=== PATIENT | male | born 1945 | race Caucasian/White ===

== ENCOUNTER → 2024-01-11 07:47 | Outpatient (REF) | payer MEDICARE, OTHER, SELFPAY ==
[2024-01-11 09:06] LABS: Hematocrit 44.4 % (39.0-52.0); Hemoglobin 15.5 g/dL (13.0-18.0); Mean Corp Hgb Conc. 34.9 g/dL (33.0-37.0); Mean Corpuscular Hgb 31.7 pg (27.0-31.0); Mean Corpuscular Volume 90.8 fL (80.0-94.0); Mean Platelet Volume 11.9 fL (7.4-10.4); Platelet Count 191 10^3/uL (130-400); Red Blood Cell Count 4.89 10^6/uL (4.70-6.10); Red Cell Dist. Width 12.5 % (11.5-14.5); White Blood Cell Count 9.8 10^3/uL (4.8-10.8)
[2024-01-11 09:49] LABS: Blood Urea Nitrogen 28 mg/dl (9-20); Calcium 9.5 mg/dl (8.4-10.2); Carbon Dioxide 27 mmol/L (22-30); Chloride 106 mmol/L (98-107); Glucose 101 mg/dl (70-99); Potassium 4.2 mmol/L (3.5-5.1); Sodium 137 mmol/L (135-145); eGFR > 60.00
== END ==
LOC: SDSPAT 07:47
PROVIDERS: ATTENDING PHYSICIAN Surgery; FAMILY PHYSICIAN Family Medicine; OTHER PHYSICIAN Internal Medicine; OTHER PHYSICIAN Surgery
DX: Z01.818 Encounter for other preprocedural examination (principal)
CPT/HCPCS: 36415; 80048; 85027; 93005

== ENCOUNTER 2024-01-18 06:15 | Day surgery (SDC) | payer MEDICARE, OTHER, SELFPAY ==
[2024-01-11 08:09] VITALS: BMI 25.9
[2024-01-18] VITALS (8 sets, daily range): BP systolic 130–169; BP diastolic 62–81; BMI 25.9
[2024-01-18] MEDS: TYLENOL 1000 MG PO (09:38)
[2024-01-18] MEDS: NORMOSOL-R 1000 IV (09:42)
--- NOTE | 2024-01-18 10:05 | W.SUR.PREOP ---
Pre-Operative Surgical Note
-
I have examined this patient prior to the performance of the scheduled procedure.
The patient's condition is unchanged from the time of the current History and
Physical and the patient is able to undergo the scheduled procedure.
--- NOTE | 2024-01-18 11:59 | W.IMMPOSTOP ---
Surgical Immed Post Op Note
-
Primary Surgeon: Noah Palacios MD
Assisting Surgeon: Umang Keith PGY1
Pre-op Diagnosis: Left inguinal hernia
Post-op Diagnosis: Same
Procedure Performed:
Open left inguinal hernia repair with mesh
Left inguinal neurectomy x 2
Anesthesia Type: General
Specimen / Cultures: Left inguinal nerves
Estimated Blood Loss: 3 cc
Complications: None
Operative Findings: Fairly large blown out direct inguinal hernia. The transversalis fascia was opened and the femoral space was inspected and noted to be free of any defects. The superior edge of the conjoined tendon was then tacked down to the
shelving edge in Bassini type repair before reinforcing the floor with a 3 x 6 inch piece of Bard flat mesh was cut to size. There was a small indirect defect that was reduced as well, there was no cord lipoma.
--- NOTE | 2024-01-18 12:03 | OR.RPT ---
Addendum entered and electronically signed by Noah Palacios MD 01/19/24 14:43:
The assistance of PRATIBHA Mckeon was required due to the complexity of the procedure. Umang scrubbed in about detention through the case after dissection of the critical structures and isolation of the cord at which point he took over as first
assist. During the procedure they both assisted with retraction, resection, and closure of the wound.
Original Note:
Operative Report
Operative Report
Patient Name: Luis Daniel Woods
: 1945
Date of Operation: 01/18/2024
Preoperative Diagnosis: Reducible Inguinal hernia, left
Postoperative Diagnosis: Same
Procedure(s):
Open Inguinal Hernia Repair
Surgeon(s):
Dr. Palacios
Marriage Therapist(s):
Umang Keith MD PGY1
PRATIBHA Mckeon
Anesthesia: General
Estimated Blood Loss: 3 cc
Urine Output: None
Drains/Lines/Implants: 3 x 6 inch Bard Flat Mesh cut to size
Specimens: Left inguinal nerves x 2
Indication for surgery: The patient has a history of multiple abdominal surgeries as well as a small bowel obstruction. He was noted to have a fairly large left inguinal hernia containing small bowel which caused him some groin pain and so
following review of therapeutic options they elected to undergo an open repair
Operative Findings: Fairly large blown out direct inguinal hernia. The transversalis fascia was opened and the femoral space was inspected and noted to be free of any defects. The superior edge of the conjoined tendon was then tacked down to the
shelving edge in a Bassini type repair before reinforcing the floor with a 3 x 6 inch piece of Bard flat mesh was cut to size. There was a small indirect defect that was reduced as well, there was no cord lipoma.
Details of the operation:
After induction of general anesthesia/LMA, the patient was clipped, prepped and draped in the supine position. A team timeout was performed confirming administration of DVT prophylaxis, IV antibiotics and SCDs. The ASIS and pubic tubercle were
marked and an incision was chosen along the course of a skin line. The skin was anesthestized with Lidocaine. An incision was made through the skin line and dissection carried down through subcutaneous tissue and Jules's fascia. The superficial
epigastric vein was i not identified. A [place] wound retractor was used to provide exposure. The external oblique fibers were then divided in the direction of travel. The ilioinguinal nerve was identified and sacrificed. Dissection was carried
down to the floor, which revealed the following:
At the site of the indirect (internal) ring, there was a small protrusion of preperitoneal fat, the hernia sac was identified, dissected and reduced off the cord structures back into the abdomen. A cord lipoma was not identified.
The direct space, was fairly blown out. The transversalis fascia was incised and the preperitoneal fat was reduced revealing Rodolfo's ligament. The femoral space was palpated and no defect was noted there. The conjoined tendon was then sutured
down to the shelving edge using interrupted 0 PDS sutures in a Bassini hernia repair type fashion.
The floor of the canal was then reconstructed by placing a 6x3 in BARD flat polypropylene mesh trimmed to size and secured it in place with interrupted 0-PDS sutures medially at the pubic tubercle, inferiorly along the inguinal ligament,
laterally/superiorly in the conjoint tendon. A slit was made in the mesh just wide enough to accommodate the cord this was also reapproximated with the PDS suture. Care was taken not to injure or entrap any nerves. The external oblique fibers were
then closed using a running 2-0 Vicryl suture. Jules's fascia was then closed with interrupted 3-0 Vicryl suture. The skin was closed in layers with interrupted 3-0 vicryl deep dermals followed by a running subcuticular 4-0 Monocryl followed by
dermabond. The patient returned to the Recovery Room in stable condition. Sponge and instrument counts were correct x2.
I was the attending physician and performed the procedure with assistance from the resident and PA above. I was present for all portions of the case
Noah Palacios MD
== END 2024-01-18 13:20 | disposition home or self-care (01) ==
LOC: SDS 06:15
PROVIDERS: ATTENDING PHYSICIAN Surgery; FAMILY PHYSICIAN Family Medicine
PROC: 0YU60JZ Supplement Left Inguinal Region with Synthetic Substitute, Open Approach (ICD-10-PCS; 2024-01-18)
DX: K40.90 Unilateral inguinal hernia, without obstruction or gangrene, not specified as recurrent (principal); D36.16 Benign neoplasm of peripheral nerves and autonomic nervous system of pelvis; Z85.51 Personal history of malignant neoplasm of bladder
CPT/HCPCS: 49505; 88305; C1781

== ENCOUNTER → 2024-01-31 18:21 | Outpatient (REF) | payer MEDICARE, OTHER, SELFPAY | LOC: CLAB 18:21 | PROVIDERS: ATTENDING PHYSICIAN Specialist | DX: C67.9 Malignant neoplasm of bladder, unspecified (principal) | CPT/HCPCS: 88112 ==

== ENCOUNTER → 2024-08-30 09:01 | Outpatient (REF) | payer MEDICARE, OTHER, SELFPAY | LOC: CLAB 09:01 | PROVIDERS: ATTENDING PHYSICIAN Specialist | DX: C67.9 Malignant neoplasm of bladder, unspecified (principal) | CPT/HCPCS: 88112 ==

== ENCOUNTER → 2025-01-27 14:03 | Outpatient (REF) | payer MEDICARE, OTHER, SELFPAY ==
[2025-01-27 18:15] LABS: Urine Albumin 1+ (Neg - Trace); Urine Bilirubin Negative (Negative); Urine Character Clear (Clear); Urine Color Yellow; Urine Glucose Negative (Negative); Urine Ketone Negative (Negative); Urine Leukocyte 1+ (Negative); Urine Nitrite Negative (Negative); Urine Occult Blood 2+ (Negative); Urine Urobilinogen Negative (Neg - 1+)
[2025-01-27 18:52] LABS: Urine Bacteria Few (Negative); Urine White Cell 16-20 /HPF (0-5)
== END ==
LOC: CLAB 14:03
PROVIDERS: ATTENDING PHYSICIAN Specialist
DX: N39.0 Urinary tract infection, site not specified (principal)
CPT/HCPCS: 81003; 81015; 87086

== ENCOUNTER → 2025-01-28 09:50 | Outpatient (REF) | payer MEDICARE, OTHER, SELFPAY ==
[2025-01-28 11:51] LABS: ALT (SGPT) 21 U/L (0-50); AST (SGOT) 20 U/L (17-59); Albumin 4.4 g/dl (3.5-5.0); Alkaline Phosphatase 68 U/L (38-126); Blood Urea Nitrogen 28 mg/dl (9-20); Calcium 9.5 mg/dl (8.4-10.2); Carbon Dioxide 26 mmol/L (22-30); Chloride 106 mmol/L (98-107); Glucose 75 mg/dl (70-99); Potassium 4.2 mmol/L (3.5-5.1); Sodium 143 mmol/L (135-145); Total Bilirubin 0.5 mg/dl (0.2-1.3); Total Protein 6.9 g/dl (6.3-8.2); eGFR > 60.00
== END ==
LOC: REG 09:50
PROVIDERS: ATTENDING PHYSICIAN Specialist; FAMILY PHYSICIAN Family Medicine
DX: C67.9 Malignant neoplasm of bladder, unspecified (principal)
CPT/HCPCS: 36415; 80053

== ENCOUNTER → 2025-01-29 08:07 | Outpatient (REF) | payer MEDICARE, OTHER, SELFPAY | LOC: RAD 08:07 | PROVIDERS: ATTENDING PHYSICIAN Specialist; FAMILY PHYSICIAN Family Medicine | DX: C67.9 Malignant neoplasm of bladder, unspecified (principal) | CPT/HCPCS: 74178; Q9967 ==

== ENCOUNTER 2025-02-16 11:17 | Emergency (ER) | payer MEDICARE, OTHER, SELFPAY ==
[2025-02-16 11:22] VITALS: BP 188/99
--- NOTE | 2025-02-16 11:54 | ED.MUSCINJ ---
HPI-Injury
General
Chief Complaint: Musculo-Skeletal Complaint
Source: patient
Exam Limitations: none
Time Seen by Provider: 02/16/25 11:31
History of Present Illness-Injury
Initial Injury comments:
79-year-old male presents complaining of worsening pain to the right side of his neck that radiates to his shoulder over the past 5 to 7 days. States he slept in house with a different pillow before this started the pain is not made worse with
breathing. No numbness or tingling or weakness. No known injury. No other complaints at this time no associated chest pain
Past History
Past History
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
ED Past Surgical History: Other (Eye surgery)
Social History
Tobacco: Former smoker
Alcohol: Occasional
Family History
Family History: Other (Colon cancer, breast cancer and lung cancer with his mother, father had rheumatic fever)
Phy Exam
Physical Exam
Physical Exam:
General: Well-appearing male no acute respiratory distress
HEENT: Normocephalic atraumatic
Heart: Regular rate and rhythm
Lungs: Clear no wheeze
Musculoskeletal exam: Patient is tender slightly to the right paraspinous area of the cervical spine. He has good active range of motion of the right shoulder. No impingement sign. Rotator cuff strength testing is intact. Increased pain with
slight extension of the neck and tilting to the right. The pain does radiate to the top of his shoulder.
Vascular: 2+ radial pulse right wrist
Injury Course
Orders/Labs/Results
Orders:
Orders
02/16/25 11:23
Electrocardiogram (*1) Urgent
Reason for Study: Other
Other Reason for Exam: neck pain
EKG- Treatment ONCE
02/16/25 11:51
CR Cervical Spine 2 or 3 Vw Urgent
Comment:
Reason For Exam: neck pain
CR Shoulder, Trauma - Right Urgent
Comment:
Reason For Exam: pain
MDM/Problems Addressed
Differential Diagnosis Includes:
Right neck and shoulder pain. Pain is reproducible to exam do not suspect dissection or PE. Question possible radiculopathy. X-rays of the right shoulder and neck are pending. Patient did receive an EKG through triage which showed sinus without
ischemic changes
*Critical Care Note
Total Time (30-74mins, 75-104mins- exclusive of procedures): Not Applicable
Update Note
Update Note:
X-rays show mild diffuse degenerative changes throughout the cervical spine no acute finding of the shoulder. Suspect radiculopathy. Will treat with prednisone and muscle relaxer. Stable for discharge
ED Attending Note
-
Portions of this chart may have been created with voice recognition software.� Occasional wrong word or��sound alike� substitutions may have occurred due to the inherent limitations of voice recognition software.
Discharge Plan
Departure
Patient Disposition: Home (Routine Discharge)
Date of Disposition: 02/16/25
Time of Disposition: 13:03
Patient with high blood pressure during this ER visit?: No
Discharge Problem:
Cervical radiculopathy
Instructions: Muscle and Bone Pain (DC)
Prescriptions:
New
prednisone 10 mg Tablet
See Rx Instructions .ROUTE .COMPLEX Qty: 30 0RF
Rx Instructions:
Take By Mouth:
40 mg daily x3 days, 30 mg daily x3 days,
20 mg daily x3 days, 10 mg daily x3 days.
methocarbamol 750 mg tablet
750 mg PO TID PRN (Reason: spasm) Qty: 14 0RF
No Action
omeprazole 20 MG capsule,delayed release(DR/EC)
20 mg PO .AFTER DINNER
PreserVision AREDS-2 1 EACH capsule
1 ea PO BID
Turmeric
1,000 mg PO BID
pravastatin 20 MG tablet
20 mg PO HS
levothyroxine 150 mcg Tablet
150 mcg PO DAILY
acetaminophen [acetaminophen] 325 mg tablet
650 mg PO Q6HPRN PRN (Reason: mild pain) Qty: 14 0RF
ibuprofen 600 mg tablet
600 mg PO Q6H PRN (Reason: pain) Qty: 14 0RF
Referrals:
Helen Vasquez MD [Family Provider] -
Activity Restrictions/Additional Instructions:
Use prednisone as directed. Use Robaxin as needed for spasm. Return if worse otherwise follow-up with your doctor. You may also apply heating pad to the area
Interventions
Interventions:
*ED COVID-19 Vaccine History Last Done: 02/16/25 11:58
ED-Musculoskeletal Assessment Last Done: 02/16/25 11:56
Discharge Date and Time
Print Language: GUATEMALAN
[2025-02-16 12:11] VITALS: BP 154/94
[2025-02-16 12:30] VITALS: BP 144/81
[2025-02-16 13:00] VITALS: BP 149/86
== END 2025-02-16 13:22 | disposition home or self-care (01) ==
LOC: EMR 11:17
PROVIDERS: EMERGENCY PHYSICIAN Emergency Medicine; FAMILY PHYSICIAN Family Medicine
DX: M47.22 Other spondylosis with radiculopathy, cervical region (principal); J44.9 Chronic obstructive pulmonary disease, unspecified; K21.9 Gastro-esophageal reflux disease without esophagitis; E03.9 Hypothyroidism, unspecified; H35.30 Unspecified macular degeneration; Z80.0 Family history of malignant neoplasm of digestive organs; Z80.1 Family history of malignant neoplasm of trachea, bronchus and lung; Z80.3 Family history of malignant neoplasm of breast; Z87.891 Personal history of nicotine dependence
CPT/HCPCS: 99283; 72040; 73030; 93005

== ENCOUNTER → 2025-02-28 09:13 | Outpatient (REF) | payer MEDICARE, OTHER, SELFPAY | LOC: CLAB 09:13 | PROVIDERS: ATTENDING PHYSICIAN Specialist | DX: Z85.51 Personal history of malignant neoplasm of bladder (principal) | CPT/HCPCS: 88112 ==

== ENCOUNTER → 2025-03-04 07:08 | Outpatient (REF) | payer MEDICARE, OTHER, SELFPAY ==
[2025-03-04 09:32] LABS: % Basophils 0.2 % (0-2); % Eosinophils 1.8 % (0-6); % Immature Granulocytes 0.8 % (0-0.5); % Lymphocytes 33.7 % (20.5-51.1); % Monocytes 7.5 % (1.7-9.3); Absolute Eosinophils 0.2 10^3/uL (0-0.7); Absolute Immature Granulocytes 0.1 10^3/uL (0-0.05); Absolute Monocytes 0.9 10^3/uL (0.1-0.6); Absolute Neutrophils 6.7 10^3/uL (1.4-6.5); Hematocrit 45.5 % (39.0-52.0); Hemoglobin 15.7 g/dL (13.0-18.0); Mean Corp Hgb Conc. 34.5 g/dL (33.0-37.0); Mean Corpuscular Hgb 31.6 pg (27.0-31.0); Mean Corpuscular Volume 91.5 fL (80.0-94.0); Mean Platelet Volume 11.6 fL (7.4-10.4); Nucleated Red Blood Cells % 0 % (-); Platelet Count 153 10^3/uL (130-400); Red Blood Cell Count 4.97 10^6/uL (4.70-6.10); Red Cell Dist. Width 12.6 % (11.5-14.5); White Blood Cell Count 11.9 10^3/uL (4.8-10.8)
[2025-03-04 10:23] LABS: TSH 2.09 uIU/ml (0.47-4.68)
[2025-03-04 10:29] LABS: ALT (SGPT) 28 U/L (0-50); AST (SGOT) 23 U/L (17-59); Albumin 4.1 g/dl (3.5-5.0); Alkaline Phosphatase 67 U/L (38-126); Blood Urea Nitrogen 28 mg/dl (9-20); Calcium 9.3 mg/dl (8.4-10.2); Carbon Dioxide 27 mmol/L (22-30); Chloride 107 mmol/L (98-107); Glucose 101 mg/dl (70-99); Potassium 4.2 mmol/L (3.5-5.1); Sodium 139 mmol/L (135-145); Total Bilirubin 0.9 mg/dl (0.2-1.3); Total Protein 6.6 g/dl (6.3-8.2); eGFR > 60.00
== END ==
LOC: HWLAB 07:08
PROVIDERS: ATTENDING PHYSICIAN Physician Assistant Medical
DX: R53.83 Other fatigue (principal)
CPT/HCPCS: 36415; 80053; 84443; 85025

== ENCOUNTER → 2025-03-18 10:09 | Outpatient (REF) | payer MEDICARE, OTHER, SELFPAY ==
[2025-03-18 12:15] LABS: % Basophils 0.2 % (0-2); % Eosinophils 2.1 % (0-6); % Immature Granulocytes 0.5 % (0-0.5); % Lymphocytes 32.9 % (20.5-51.1); % Monocytes 6.3 % (1.7-9.3); Absolute Eosinophils 0.2 10^3/uL (0-0.7); Absolute Immature Granulocytes 0.1 10^3/uL (0-0.05); Absolute Lymphocytes 3.5 10^3/uL (1.2-3.4); Absolute Monocytes 0.7 10^3/uL (0.1-0.6); Absolute Neutrophils 6.2 10^3/uL (1.4-6.5); Hematocrit 43.6 % (39.0-52.0); Hemoglobin 15.3 g/dL (13.0-18.0); Mean Corp Hgb Conc. 35.1 g/dL (33.0-37.0); Mean Corpuscular Volume 91.2 fL (80.0-94.0); Mean Platelet Volume 11.7 fL (7.4-10.4); Nucleated Red Blood Cells % 0 % (-); Platelet Count 220 10^3/uL (130-400); Red Blood Cell Count 4.78 10^6/uL (4.70-6.10); Red Cell Dist. Width 12.6 % (11.5-14.5); White Blood Cell Count 10.6 10^3/uL (4.8-10.8)
== END ==
LOC: HWLAB 10:09
PROVIDERS: ATTENDING PHYSICIAN Physician Assistant Medical; FAMILY PHYSICIAN Family Medicine
DX: D72.828 Other elevated white blood cell count (principal)
CPT/HCPCS: 36415; 85025

== ENCOUNTER → 2025-09-24 10:06 | Outpatient (REF) | payer MEDICARE, OTHER, SELFPAY ==
[2025-09-24 12:06] LABS: Hematocrit 44.0 % (39.0-52.0); Hemoglobin 15.2 g/dL (13.0-18.0); Mean Corp Hgb Conc. 34.5 g/dL (33.0-37.0); Mean Corpuscular Volume 90.9 fL (80.0-94.0); Nucleated Red Blood Cells % 0 % (-); Platelet Count 166 10^3/uL (130-400); Red Cell Dist. Width 12.6 % (11.5-14.5)
[2025-09-24 12:16] LABS: Blood Urea Nitrogen 20 mg/dl (9-20); Calcium 9.3 mg/dl (8.4-10.2); Carbon Dioxide 28 mmol/L (22-30); Chloride 102 mmol/L (98-107); Glucose 98 mg/dl (70-99); Potassium 4.4 mmol/L (3.5-5.1); Sodium 136 mmol/L (135-145); eGFR > 60.00
== END ==
LOC: SDSPAT 10:06
PROVIDERS: ATTENDING PHYSICIAN Specialist; FAMILY PHYSICIAN Family Medicine
DX: Z01.818 Encounter for other preprocedural examination (principal)
CPT/HCPCS: 36415; 80048; 85025; 93005